=== PATIENT | male | born 1980 | race Caucasian/White ===

== ENCOUNTER 2024-07-04 18:13 | Emergency (ER) | payer MEDICAID, SELFPAY ==
[2024-07-04 18:15] VITALS: BP 115/87; PULSE 106; RESP 18; TEMP 37; O2SAT 93
--- NOTE | 2024-07-04 18:19 | ED_ITS ---
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 Currently the patient has ascending aortic aneurysm and is awaiting surgery. He had a fall 2 weeks ago on his buttock and sustained a 2 cm laceration in the gluteal cleft which was sutured. He presents to the ED with dehiscence / nonhealing of the laceration. The stitches have not been removed. No purulent discharge. No fever or chills. Onset (ago): week(s) ( Two weeks) Location: other ( gluteal cleft) Body four view annotation: 2 1. 2 cm gluteal cleft laceration which is above the anus. Wound is dehisced. Patient tetanus UTD: Yes Context: accidental Associated symptoms: none Related Data Home Medications ?Medication ?Instructions ?Recorded ?Confirmed ?Last Taken ?Type lisinopril 20 mg tablet 20 mg PO DAILY 06/13/19 06/13/19 06/12/19 History aspirin 81 mg chewable tablet 81 mg PO DAILY 07/04/24 Unknown History (Aspirin Childrens) metoprolol tartrate 50 mg tablet 50 mg PO BID 07/04/24 Unknown History omeprazole 20 mg capsule,delayed 20 mg PO DAILY 07/04/24 Unknown History release Allergies Allergy/AdvReac Type Severity Reaction Status Date / Time Penicillins Allergy Mild rash Verified 07/04/24 18:22 Review of Systems 2 Review of Systems: All systems reviewed & are unremarkable except as noted in HPI and below PMFSH Past Medical History Medical History Hypertension Anxiety Surgical History Surgical History H/O tricuspid valve replacement H/O aortic valve replacement Social History Social History Smoking status: Current every day smoker Alcohol intake: never Substance use: never Living arrangements: with family Exam 2 Narrative: afebrile. Const: General: healthy appearing and no acute distress Nutritional Appearance: well nourished Orientation/consciousness: patient oriented x3 Limitations: no limitations HENMT: Head: normal to inspection Ears: external ears normal F joe/Nose/Sinus: Normal external nose present Face and sinus: normal facial exam Mouth: Yes Normal oral and palatal mucosa present Throat: posterior oropharynx normal Eyes: Conjunctivae: conjunctivae normal Pupils: Equal, round and reactive pupils present EOM: EOMs intact bilaterally Direct Ophthalmoscopy: no photophobia Neck: Neck: normal visual inspection, no lymphadenopathy and no meningeal signs Chest: Chest palpation & inspection: normal inspection of the chest Resp: Effort & Inspection: normal respiratory effort Auscultation: clear to auscultation bilaterally Cardio: Rate: regular rate Rhythm: regular rhythm GI: GI Palp: Yes Soft to palpation Auscultation: normal bowel sounds O ther: No tenderness/ rigidity /rebound. gluteal cleft-- 2 cm laceration on the upper gluteal cleft which was repaired but is currently dehisced. Healthy granulation tissue. No discharge. Back/Spine/Pelvis: Back: CVA tenderness Skin: General skin exam: normal color Rashes: no rashes Wounds: no wounds Neuro: General: patient oriented x3, moves all extremities, no meningeal signs, no focal motor deficits and CN's II-XI intact bilaterally Cranial nerves: Yes Nystagmus not present Speech: normal speech Gait exam (Neuro): Normal gait present Extrem: General: normal to inspection, no clubbing, cyanosis or edema and no pedal edema Psych: Mental Status: mental status grossly normal Affect: normal affect Attitude: cooperative Course Course Emergency Course: Gluteal cleft laceration-- sutures placed 2 weeks ago have been removed. Wound looks healthy with healthy granulation tissue Vital Signs Vital signs: Vital Signs Temperature 37.0 C 07/04/24 18:15 Pulse Rate 106 H 07/04/24 18:15 Respiratory Rate 18 07/04/24 18:15 Blood Pressure 115/87 07/04/24 18:15 Pulse Oximetry 93 07/04/24 18:15 Oxygen Delivery Room Air 07/04/24 18:15 Temperature 37.0 C 07/04/24 18:15 Pulse Rate 106 H 07/04/24 18:15 Respiratory Rate 18 07/04/24 18:15 Blood Pressure 115/87 07/04/24 18:15 Pulse Oximetry 93 07/04/24 18:15 Oxygen Delivery Room Air 07/04/24 18:15 MDM - Wound/Laceration MDM Narrative Medical decision making narrative: gluteal cleft laceration/suture removal Differential Diagnosis Differential diagnosis: Likely laceration Discharge Plan Discharge Clinical Impression: Laceration Patient Disposition: Home, Self-Care Condition: Stable Instructions: Antibiotic Form, Laceration (ED) Patient Language: Urdu Prescriptions: No Action lisinopril 20 mg tablet 20 mg PO DAILY metoprolol tartrate 50 mg tablet 50 mg PO BID aspirin [Aspirin Childrens] 81 mg tablet,chewable 81 mg PO DAILY omeprazole 20 mg capsule,delayed release(DR/EC) 20 mg PO DAILY Follow-up/Referrals: UNKNOWN,DOCTOR [Non-Staff] - Time of Disposition: 18:47
[2024-07-04] MEDS: NEOMYCIN/POLYMYXIN/BACITRACIN OINTMENT PACKET 1 PACKET TOPICAL (18:50)
== END 2024-07-04 18:57 | disposition home or self-care (01) ==
LOC: CHSED 18:55
PROVIDERS: Emergency Provider Internal Medicine Critical Care Medicine; PCP Nurse Practitioner Family
DX: S31.821A Laceration without foreign body of left buttock, initial encounter (principal); I10 Essential (primary) hypertension; F17.200 Nicotine dependence, unspecified, uncomplicated; Z79.899 Other long term (current) drug therapy; W19.XXXA Unspecified fall, initial encounter
CPT/HCPCS: 99282

== ENCOUNTER 2025-01-24 06:57 | Emergency (ER) | payer OTHER, SELFPAY ==
--- NOTE | ~2025-01-24 | CT_ITS ---
EXAMINATION: CT abdomen pelvis wo con DATE: 01/24/2025 08:00 INDICATION: Right flank pain, hematuria, nausea and vomiting. TECHNIQUE: Computed tomography (CT) of the abdomen and pelvis was performed without intravenous contr ast. Automated exposure control and iterative reconstruction technique were employed. The dose-length product was 465.47 mGy-cm. COMPARISON: None FINDINGS: Discoid atelectasis in the bilateral lower lobes. Cluster of small calcified nodules at the lingula c onsistent with old granulomatous disease. Heart size is normal. No pericardial or pleural effusion. P ostoperative changes are clear pulmonic valve repair versus stenting of the pulmonary outflow tract. Dense aortic valve calcifications. Aortic ectasia measuring up to 5.0 cm diameter. Liver, gallbladder, pancreas, bilateral adrenal glands are normal. 5 mm obstructing stone at the righ t ureteropelvic junction with mild to moderate right hydronephrosis. A couple punctate 1 mm stones/ca lcifications at a region of cortical scarring at the lower pole the left kidney. A few small splenic calcifications consistent with old granulomatous disease. Mild diverticulosis without adjacent from t race stranding to suggest diverticular colitis. Small bowel and appendix are normal. Bladder is dorene l. Small bilateral fat-containing inguinal hernias. No free intraperitoneal gas or fluid. No patholog ically enlarged abdominal or pelvic lymphadenopathy. IMPRESSION: 1. Obstructing 5 mm stone at right ureteropelvic junction with mild to moderate right hydronephrosis. 2. 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 Reviewed, dictated and finalized at location A. IMPRESSION: 1. Obstructing 5 mm stone at right ureteropelvic junction with mild to moderate right hydronephrosis. 2. A a aortic ectasia of the visualized proximal ascending aorta measuring up t o 5.0 cm.
--- OUTSIDE RECORDS SUMMARY | 2025-01-24 06:59 | XMS_ITS | Encounter Summary ---
Author Organization [facility] Address [facility] [place] [address] Care Team Providers Care Milk Condenser Name Role Phone Talia Hassan MD Primary Care Provider [phone] Kamila Olmedo MD Unavailable [phone] Wild Lopez MD Unavailable [phone] Karolina Ramesh TANGLED YARN WORKER Primary Care Provider + [phone] Sidney Ho MD Unavailable [phone] Emery Price MD Unavailable Unavailable Reuben Sanchez MD Unavailable Unavailable Dawson Webber APRN Unavailable [phone] Encounter Details Date Type Department Care Team (Late st Contact Info) Description 10/20/2016 Abstract [facility] [address] [place] [address] Wild Lopez MD [address] [facility], [address] [place] [address] Social History Tobacco Use Types Packs/Day Years Used Date Smoking Tobacco: Former Cigarettes 1 10 0 11/09/2000 - 11/09/2010 Alcohol Use Standard Drinks/Week Comments No 0 (1 standard drink = 0.6 oz pur e alcohol) Sex and Gender Information Value Date Recorded Sex Assigned at Male 01/22/2025 3:12 AM CDT Legal 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 [place] [address] PCP - General INTERNAL MEDICINE 08/22/16 11/27/17 Karolina Ramesh FNP [address] [place] [address] PCP - General NURSE PRACTITIONER 11/28/17 Kamila Olmedo MD [address] [place] [address] CARDIOVASCULAR DISEASE 08/22/16 Wild Lopez MD [address] [place] [address] CARDIOVASCULAR DISEASE 10/25/16 Sidney Ho MD [address] [place] [address] ORTHOPAEDIC SURGERY 03/20/18 Emery Price MD [address] [place] [address] THORACIC DISEASES 12/05/18 Reuben Sanchez MD [address] [place] [address] VASCULAR SURGERY 04/15/19 Dawson Webber APRN [address] [place], [place] [id number] Nurse Practitioner NURSE PRACTITIONER 08/25/22 documented as of this encounter
--- OUTSIDE RECORDS SUMMARY | 2025-01-24 06:59 | XMS_ITS | Encounter Summary ---
Author Organization [facility] Address [address] [place] [address] Care Team Providers Care Enterprise Resource Planning Consultant Name Role Phone Kamila Olmedo MD Unavailable [phone] Wild Lopez MD Unavailable [phone] Karolina Ramesh IT SALES EXECUTIVE Primary Care Provider + [phone] Sidney Ho MD Unavailable [phone] Emery Price MD Unavailable Unavailable Reuben Sanchez MD Unavailable Unavailable Dawson Webber APRN Unavailable [phone] Encounter Details Date Type Department Care Team (Late st Contact Info) Description 02/13/2021 Talking Data Message Enc [facility] [address] [place] [id number] Dawson Webber, TIRE FABRICATOR [address] [place] [address] RE: Question Social History Tobacco Use Types Packs/Day Years Used Date Smoking Tobacco: Former Cigarettes 0 0 11/09/2010 - 11/09/2010 Smokeless Tobacco: Never Alcohol Use Standard Drinks/Week Comments Yes 0 (1 standard drink = 0.6 oz pur e alcohol) occasional Sex and Gender Information Value Date Recorded Sex Assigned at Male 01/22/2025 3:12 AM CDT Legal 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 No / Unsure 02/11/2021 4:35 AM CDT documented as of this encounter Functional Status * RETIRED Are you deaf or do you have serious difficulty hearing Answer Date of Assessment Author Status No 02/11/2021 4:00 AM CDT Activ e * RETIRED Are you blind or do you have serious difficulty seeing, even when wearing glasses? Answer Date of Assessment Author Status No 02/11/2021 4:00 AM CDT Activ e * Do you have serious difficulty walking or climbing stairs? Answer Date of Assessment Author Status No 02/11/2021 4:00 AM CDT Jayne Jane RN Active * Do you have difficulty dressing or bathing? Answer Date of Assessment Author Status No 02/11/2021 4:00 AM CDT Jayne Jane RN Active * Because of a physical, mental, or emotional condition, do you have difficulty doing errands alone such as visiting a doctor's office or shopping? Answer Date of Assessment Author Status No 02/11/2021 4:00 AM CDT Jayne Jane RN Active documented as of this encounter Mental Status * Because of a physical, mental, or emotional condition, do you have serious difficulty concentrating, remembering, or making decisions? Answer Entry Date Author Status No 02/11/2021 4:00 AM CDT Jayne Jane RN Active documented in this encounter Plan of Treatment Not on file documented as of this encounter Visit Diagnoses Not on filedocumented in this encounter Additional Health Concerns Infection Onset Date Last Indicated Resolved Time COVID-19 Rule Out 11/24/2021 11/24/2021 11/25/2021 12:07 AM CDT documented as of this encounter Care Teams Enterprise Resource Planning Consultant Relationship Specialty Start Date End Date Karolina Ramesh FNP [address] [facility] [address] [address] PCP - General NURSE PRACTITIONER 11/28/17 Kamila Olmedo MD [address] [facility] [address] [address] CARDIOVASCULAR DISEASE 08/22/16 Wild Lopez MD [facility] [address] [facility] [address] [place] [address] CARDIOVASCULAR DISEASE 10/25/16 Sidney Ho MD [address] [place] [address] ORTHOPAEDIC SURGERY 03/20/18 Emery Price MD [address] [place] [address] THORACIC DISEASES 12/05/18 Reuben Sanchez MD [address] [place] [address] VASCULAR SURGERY 04/15/19 Dawson Webber APRN [address] [place] [address] Nurse Practitioner NURSE PRACTITIONER 08/25/22 documented as of this encounter
--- OUTSIDE RECORDS SUMMARY | 2025-01-24 06:59 | XMS_ITS | Clinical Summary ---
Author Organization [facility] Address [address] [place] [address] Care Team Providers Care Wood Heel Attacher Name Role Phone Karolina Ramesh APRN-MACHINE SIGN WRITER Unavailable [phone] Nicolas Martinez MD Unavailable [phone] Karolina Ramesh TERRAZZO FINISHER HELPER-MACHINE SIGN WRITER Primary Care Provider Source Comments [facility],non-owned Affiliates and Associated Physician Practices is amultiple site organization consisting of ambulatory clinics and hospital sitesin [place], [place], [place] and [place]. This disclosure is being madepursuant to the Care Everywhere program and may not contain all information available regarding this patient. Last updated 18.[facility] [place] Allergies Active Allergy Reactions Criticality Noted Date Comments Penicillins Other 09/05/2016 Medications * Be aware that medications may not be up to date on this document. Alwaysverify current medications with the patient. aspirin (Aspirin) 81 MG chew tablet Take 1 (one) tablet by mouth once daily 90 tablet 3 10/14/2024 Active lisinopril (Prinivil; Zestril) 20 MG tabletIndication s:HTN (hypertension), benign Take 1 (one) tablet by mouth once daily 90 tablet 3 10/14/2024 Active metoprolol succinate XL 24hr (Toprol XL) 50 MG tablet Take 1 (one) tablet by mouth 2 times daily 180 tablet 3 10/14/2024 Active Active Problems Problem Noted Date Diagnosed Date Pericardial effusion 07/19/2019 Assessment & Plan (07/25/2019 11:52 AM HEALTH CARE MARKETING MANAGER): Pericardial effusion Assessment: Chacha Oneill is a 38 year old male with history of anxiety and bicuspid aortic valve 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 CTA from referring facility reviewed and significant for pericardial effusion possibly due to leak from Ann valve with extravasation of sanguinous fluid. CTA and echocardiogram on 07/19 are consistent with pericardial effusion with suspected extravasation from region of Ann valve. He was taken to the OR after initially being admitted to the Cardiology service for evacuation of the hemopericardium, followed by transfer to PICU. He tolerated the procedure well and there was no bleed found, however the pericardial effusion did find some clotted blood and the remaining of the effusion was drained. Transferred back to Cardiology service on 07/23. Patient remains hemodynamically stable, chest tubes removed, now stable on room air. TTE on 07/24 demonstrated small-moderate pericardial effusion, leftward and posterior to LV up to 15 mm. Patient continued on IV Lasix for diuresis. BMP 07/25 demonstrated BUN and Cr returned to baseline and hypokalemia. CXR showed increasing lung volume, will repeat TTE today. Patient continues to endorse persistent pain on current regimen. He received 1x flexeril due to symptoms; will hold off on additional doses for now given concerns for cardiac side effects. Plan: Resp: - Now stable on room air - Continue incentive spirometry CVS: - Restart home lisinopril 20 mg daily - Continue metoprolol to 100 mg daily and 325 mg ASA for ann valve prophylaxis - Continue cardiac tele - Continue Motrin 400 mg q8h PO for pain control and to reduce inflammation - Tylenol 650 mg scheduled q6h - Repeat ECHO today Neuro: - Scheduled Ativan 2 mg q6h for anxiety, has not required PRN amitriptyline qhs - Increase oxycodone to 10 mg q4h PRN FEN/GI: - Diet regular - D/c Colace and Senna. 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 CTA from referring facility reviewed and significant for pericardial effusion possibly due to leak from Ann valve with extravasation of sanguinous fluid. CTA and echocardiogram on 07/19 are consistent with pericardial effusion with suspected extravasation from region of Ann valve. He was taken to the OR after initially being admitted to the Cardiology service for evacuation of the hemopericardium, followed by transfer to PICU. He tolerated the procedure well and there was no bleed found, however the pericardial effusion did find some clotted blood and the remaining of the effusion was drained. Transferred back to Cardiology service on 07/23. Patient remains hemodynamically stable, chest tubes removed, pain well controlled--SCRUB WOMAN now discontinued. Does not endorse any persistent chest pain or orthopnea. CXR reassuring. BMP this morning demonstrating mild hypokalemia and increased BUN and Cr consistent with changes from loop diuretic. Plan: Resp: - Currently on 2 L NC for night time desaturation. Will trial on RA today. - Continue incentive spirometry - CXR 2 VW CVS: - Continue home lisinopril 20 mg daily and 325 mg ASA for ann valve prophylaxis - Continue metoprolol to 100 mg daily - Transition Lasix 20 mg BID from IV to 40 mg PO BID - ECHO today Neuro: - Scheduled Ativan 2 mg q6h for anxiety, has not required PRN amitriptyline qhs - Oxycodone 5 mg q4h PRN and Tylenol 650 mg q4h PRN for pain FEN/GI: - Diet regular - Colace and Senna for bowel regimen while on pain management - D/c Pepcid today - CaC03 for hypocalcemia Heme: - Continue heparin, ASA, and SCDs - Encouraged continued ambulation ID: - No evidence of PNA - Repeat CXR today Assessment & Plan (07/23/2019 12:22 PM HEALTH CARE MARKETING MANAGER): Pericardial effusion Assessment: Chacha Oneill is a 38 year old male with history of anxiety and bicuspid aortic valve 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 CTA from referring facility reviewed and significant for pericardial effusion possibly due to leak from Ann valve with extravasation of sanguinous fluid. CTA and echocardiogram on 07/19 are consistent with pericardial effusion with suspected extravasation from region of Ann valve. He was taken to the OR after initially being admitted to the Cardiology service, after being transferred to the PICU for evacuation of the hemopericardium. He tolerated the procedure well and there was no bleed found, however the pericardial effusion did find some clotted blood and the remaining of the effusion was drained. He is now is stable for transfer back to Cardiology. Plan: RS Currently on 2 L NC, will wean as tolerated Continue incentive spirometry CVS: Continue home lisinopril 20 mg daily Increase metoprolol to 100 mg daily Lasix 20 mg BID Starting 325 mg asa for ann valve prophylaxis Neuro Scheduled ativan for anxiety 2 mg q6 Currently on dilaudid SCRUB WOMAN per pain team recommendations Tylenol 650 mg q6- 8 doses Toradol 30 mg IV- 4 doses FENGI: Diet regular Colace for bowel regimen while on pain management CaC03 for hypocalcemia Assessment & Plan (07/23/2019 11:49 AM HEALTH CARE MARKETING MANAGER): Assessment: Chacha Oneill is a 38 year old male with history of anxiety and bicuspid aortic valve 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 CTA from referring facility reviewed and significant for pericardial effusion possibly due to leak from Ann valve with extravasation of sanguinous fluid. CTA and echocardiogram on 07/19 are consistent with pericardial effusion with suspected extravasation from region of Ann valve. Taken to OR on 07/21 for evacuation of hemopericardium, transferred to PICU post- op. He was extubated, started on SCRUB WOMAN for pain control. Telemetry remained stable. He was transferred to Cardiology service for further care. Plan: - Transfer to Cardiology, Dr. Alberto - Diet: regular - Daily colace, tums (started for low calcium) - Continue home lisinopril 20mg daily - Increase metoprolol from 75mg to 100mg daily - Lasix 20mg BID - Start aspirin 325mg daily for ann valve prophylaxis - Dilaudid SCRUB WOMAN: basal 0.75mg/hr, push 0.3mg, lockout 10 min, hourly max 1.95mg --> wean as tolerated - Toradol 30mg IV q6h x4 doses - Tylenol 650mg q6h x8 doses - Ativan 2mg q6h for anxiety - CR monitors, continuous pulse ox - Incentive spirometry - Nicotine patch - I/O's - VS q4h Assessment & Plan (07/21/2019 12:43 PM HEALTH CARE MARKETING MANAGER): Pericardial effusion Assessment: Chacha Oneill is a 38 year old male with history of anxiety and bicuspid aortic valve 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 CTA from referring facility reviewed and significant for pericardial effusion possibly due to leak from Ann valve with extravasation of sanguinous fluid. CTA and echocardiogram on 07/19 are consistent with pericardial effusion with suspected extravasation from region of Ann valve. Pneumonia vs atelectasis appreciated on CTA and cannot be ruled out as contributing to symptoms. Patient remains hemodynamically stable, no evidence of tamponade physiology. Still with orthopnea, shortness of breath, chest pain. Or today for correction followed by PICU transfer. Plan: - OR today for correction - CR monitors, continuous pulse ox - Incentive spirometry - I/O's - VS q4h - Oxycodone q4h PRN - Colace daily for constipation, consider adding Miralax if continues to have issues - Will hold ASA for now while further testing is completed - Continue home metoprolol, hold lasix and lisinopril due to concerns for hypotension from pericardial effusion - Will continue levaquin for possible pneumonia. 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 His effusion appears to be bloody in nature, now with appearance of hemopericardial effusion with thrombus noted posteriorly and anteriorly. Outside CT and follow-up here suspicious for possible vascular leak in region of newly placed Ann valve, possibly larger hemopericardial effusion. He continues hemodynamically stable without signs of tamponade, but remains symptomatic with diaphoresis and orthopnea. He was discussed at our CT surgical case conference today with consensus to proceed with surgical exploration with possible revision of RVOT to address likely leak as well as surgical drainage of pericardial effusion. Plan: 1. Cardiac - to OR today and will go to PICU postoperatively - Holding lisinopril and lasix given size of effusion and concern for hemodynamic changes. - He does have a history of Vtach post-cath procedure, now on Metoprolol. Short 4-beat run this weekend with PVCs overnight, no further episodes, continue at 75mg po QD for now. - continue to monitor telemetry and hemodynamics 2. Resp - - Currently stable on RA. - CXR this morning shows stable heart size with continued small pleural effusions bilaterally, more confluent left basilar consolidation today - Had low grade fever at outside hosp, so treating for possible pneumonia, continue levofloxacin, change to po. 3. FEN/GI - NPO for surgery . 4. Heme - Hct has remained stable. Holding aspirin for now preoperatively. 5. ID - cxs at outside hosp are NGTD, continues on levoflox for possible pneumonia. 6. Neuro - continues on home anxiety meds (Ativan in place of Xanax while in hospital), oxycodone prn pain. 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 His effusion appears to be bloody in nature, now with appearance of hemopericardial effusion with thrombus noted posteriorly and anteriorly. Outside CT and follow-up here suspicious for possible vascular leak in region of newly placed Ann valve. He continues hemodynamically stable without signs of tamponade, however he remains symptomatic with diaphoresis and orthopnea. Plan: 1. Cardiac - Hemopericardium, on CT today appears relatively stable compared with outside CT, though remains with sizeable hemopericardium. Holding lisinopril and lasix given size of effusion and concern for hemodynamic changes. Currently BP and HR remains stable. He does have a history of Vtach post-procedure, now on Metoprolol. Short 4-beat run yesterday afternoon, no further episodes, continue at 75mg po QD for now. 2. Resp - Bilateral pleural effusions and some areas of atelectasis. Currently stable on RA. Had low grade fever at outside hosp, so treating for possible pneumonia, continue levofloxacin, change to po. 3. FEN/GI - may resume pos today. Monitor Is/Os. 4. Heme - Hct has remained stable. Holding aspirin for now. 5. ID - cxs at outside hosp are NGTD, continues on levoflox for possible pneumonia. Chacha remains hospitalized due to critical concern for vascular leak related to recent Ann valve placement. His effusion is relatively stable, however he does have symptoms related to this and may ultimately require surgical drainage of bloody effusion and possibly even patch of area that is leaking or even more significant operation including RV to PA conduit revision. CT surgery aware of patient and Dr. Cheung also has been actively involved. Will discuss in conference further tomorrow, plan for follow-up CXR in AM. 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 CTA from referring facility reviewed and significant for pericardial effusion possibly due to leak from Ann valve with extravasation of sanguinous fluid. CTA performed this AM and echocardiogram are consistent with pericardial effusion with extravasation from Ann valve. Pneumonia vs atelectasis appreciated on CTA and cannot be ruled out as contributing to symptoms. Patient remains hemodynamically stable; will continue to manage pain and monitor symptoms with no additional intervention planned at this time. Plan: - diet regular - CXR 2vw in AM to monitor pericardial effusion - CR monitors, continuous pulse ox - Incentive spirometry - I/O's - VS q4h - Oxycodone q4h PRN - Colace daily for constipation, consider adding Miralax if continues to have issues - Will hold ASA for now while further testing is completed - Continue home metoprolol, hold lasix and lisinopril due to concerns for hypotension from pericardial effusion - Will continue levaquin for possible pneumonia. 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 Differential at this point includes pneumonia vs atelectasis vs pericarditis vs persistent pericardial effusion causing pain. CTA from referring facility reviewed and significant for pericardial effusion possibly due to leak from Ann valve with extravasation of sanguinous fluid. Patient remains hemodynamically stable; will continue to manage pain and monitor symptoms with no additional intervention planned at this time. Plan: - diet clear liquid - Echo today - CR monitors, continuous pulse ox - Incentive spirometry - I/O's - VS q4h - Oxycodone q4h PRN - Colace daily for constipation, consider adding Miralax if continues to have issues - Zofran x1 dose for nausea, watch QTc before ordering future doses - Will hold ASA for now while further testing is completed - Continue home metoprolol, hold lasix and lisinopril due to concerns for hypotension from pericardial effusion - Will continue levaquin for possible pneumonia. D/c vancomycin. 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 He requires admission for further work-up. Plan: - Admit to Cardiology, Dr. Bocanegra - Regular diet - Echo today - CR monitors, continuous pulse ox - Incentive spirometry - I/O's - VS q4h - Oxycodone q4h PRN - Colace daily for constipation, consider adding Miralax if continues to have issues - Zofran x1 dose for nausea, watch QTc before ordering future doses - Will hold ASA for now while further testing is completed -Continue remaining home medications - Will continue Levofloxacin and Vancomycin to treat for presumed pneumonia; if low suspicion for MRSA pneumonia after further testing is completed and if pneumonia continues to be high on differential, levofloxacin would be adequate coverage for CAP Bicuspid aortic valve h/o Ro ss procedure, infective endocarditis and RV to PA conduit insufficiency s/p Ann valve placement 07/16/2019 Overview (07/22/2019): Cardiac Diagnoses: 1. Bicuspid aortic valve 2. Aortic insufficiency 3. H/o infective endocarditis 4. RV-PA conduit stenosis and insufficieny 5. Pericardial effusion Cardiac Procedures/Surgeries: 1. Ross procedure 2. Cardiac catheterization with placement of a 22m Ann Valve (07/14/19, Dr. Cheung) 3. Median sternotomy with evacuation of hematoma and exploration of the main pulmonary artery and right ventricular outflow tract using cardiopulmonary bypass (07/21/19, Dr. 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 He went to the OR 07/21/19 for surgical evaluation of hematoma and exploration of the MPA/RVOT without visualization of active tear or bleeding. He is POD 4 off inotropes and has responded very well to diuretics. The pericardial effusion has decreased in size since yesterday and he states his pain control is adequate. Plan: 1. Cardiac - - lisinopril 20mg po qd (avoiding nephrotoxic effects) - metoprolol XL 100mg po qd- had VT post-cath procedure as well as short run of SVT with stable telemetry overnight; - Transition to lasix 40mg PO BID - continue scheduled ibuprofen for antiinflammatory effects 2. Resp - RA - encouraging incentive spirometry 3. FEN/GI - regular diet, CaCo3 supplement - KCL 20mEQ BID - BMP in AM (will obtain as outpatient) 4. Heme - Hct has remained stable. - Resuming ASA 325mg for ann valve ppx 5. ID - s/p treatment for possible PNA with levaquin 6. Neuro - tylenol scheduled, ibuprofen scheduled, prn oxycodone 5mg q4h for breakthrough pain; can increase to 10mg once to see if helps while getting back to scheduled pain regimen - continue home anxiety meds (Ativan in place of Xanax while in hospital) 7. 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 He went to the OR 07/21/19 for surgical evaluation of hematoma and exploration of the MPA/RVOT without visualization of active tear or bleeding. He is POD 3 off inotropes and on room air but today on postop echocardiographic evaluation appears to have a small/mod pericardial effusion without clinical signs of tamponade. Overall goal is to continue to diureses and monitor effusion. Plan: 1. Cardiac - Off inotropes and vasoactives - hold lisinopril 20mg po qd (avoiding nephrotoxic effects) - continue metoprolol XL 100mg po qd- monitoring telemetry, had VT post-cath procedure as well as short run of SVT with stable telemetry overnight; - lasix 20mg IV BID will change to lasix IV 20mg q8h today to promote diuresis - start ibuprofen for antiinflammatory effects - repeat echo tomorrow to check pericardial effusion 2. Resp - RA - encouraging incentive spirometry - repeat CXR 2V in AM 3. FEN/GI - regular diet, CaCo3 supplement - BMP in AM 4. Heme - Hct has remained stable. - holding ASA 325mg for ann valve ppx, hx of hemopericardium 5. ID - s/p treatment for possible PNA with levaquin 6. 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 He went to the OR 07/21/19 for surgical evaluation of hematoma and exploration of the MPA/RVOT without visualization of active tear or bleeding. He is currently in the PICU postoperatively with stable hemodynamics now extubated and off inotropes. Plan: 1. Cardiac - Off inotropes and vasoactives -lisinopril 20mg po qd - monitoring telemetry, had VT post-cath procedure as well as short run of SVT with stable telemetry overnight; please increase Metoprolol XL 75mg to 100mg po QD - lasix 20mg po BID will change to lasix IV 20mg po BID today to promote diuresis 2. Resp - 2L NC, wean as tolerated - encouraging incentive spirometry 3. FEN/GI - regular diet, pepcid, CaCo3 supplement - BMP in AM 4. Heme - Hct has remained stable. SubQ heparin and SCDs thombus prophylaxis - monitoring CT output - start ASA 325mg for ann valve ppx 5. ID - cxs at outside hosp are NGTD, - Had low grade fever at outside hosp prior to admission, has received levaquin for possible PNA ; 6. 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 He went to the OR yesterday for surgical evaluation of hematoma and exploration of the MPA/RVOT without visualization of active tear or bleeding. He is currently in the PICU postoperatively with stable hemodynamics anticipating extubation. Plan: 1. Cardiac - Off inotropes and vasoactives - please resume home lisinopril 20mg po qd - monitoring telemetry, had VT post-cath procedure as well as short run of SVT with stable telemetry overnight; please increase Metoprolol XL 75mg to 100mg po QD 2. Resp - extubation today 3. FEN/GI - currently NPO for extubation, resume diet as tolerate post extubation 4. Heme - Hct has remained stable. SubQ heparin and SCDs thombus prophylaxis - monitoring CT output 5. ID - cxs at outside hosp are NGTD, - Had low grade fever at outside hosp prior to admission, has received levaquin for possible PNA ; 6. Neuro - consult pain team today for continued pain management; continues on home anxiety meds (Ativan in place of Xanax while in hospital) Assessment & Plan (07/17/2019 4:56 PM HEALTH CARE MARKETING MANAGER): Assessment: Chacha Oneill is a 38 year old male with a history of aortic valve disease (BAV) and endocarditis, also s/p Ross procedure. He developed significant conduit insufficiency and underwent transcatheter Ann valve placement on 07/14/19 with good result. His recovery was complicated by a non-sustained symptomatic run of VT post- procedure. He was therefore started on metoprolol and continues to be monitored for ventricular arrhythmias. He has had no further episodes of VT. His previous echo demonstrated a small to moderate pericardial effusion post-procedure which remains stable and appears more organized with fibrin stranding noted. Plan: 1. Continue metoprolol XL, increase to 75mg po QD (had short run of SVT - 7 beats with rate of 177 yesterday AM). Continue lisinopril 20 mg PO, will decrease to QD since increasing metoprolol. Aspirin 325 mg daily. Decrease lasix to 20mg po QD. 2. Continue usual home medications. 3. Regular diet. Ambulate in halls and continue incentive spirometry. 4. Tylenol and oxycodone prn for pain control. 5. Continue ibuprofen for 4 more days given pericardial effusion. 6. Plan for d/c today, follow-up with primary sexual health physician scheduled on 08/08. Reviewed echo and CXR with Dr. Cheung, pericardial effusion not increased, stable for d/c today. Assessment & Plan (07/16/2019 11:25 AM HEALTH CARE MARKETING MANAGER): Assessment: Chacha Oneill is a 38 year old male with a history of aortic valve disease (BAV) and endocarditis, also s/p Ross procedure. He developed significant conduit insufficiency and underwent transcatheter Ann valve placement on 07/14/19 with good result. His recovery was complicated by a non-sustained symptomatic run of VT post- procedure. He was therefore started on metoprolol and continues to be monitored for ventricular arrhythmias. He has had no further episodes of VT. His previous echo demonstrated a small pericardial effusion post-procedure. Plan: 1. Continue metoprolol XL 50 mg PO once daily. Continue lisinopril 20 mg PO BID as before. Aspirin 325 mg daily. Continue Lasix 20 mg PO BID for pericardial effusion. Repeat echo in AM. Continue to monitor on telemetry. 2. Continue usual home medications. 3. Regular diet. Ambulate in halls and continue incentive spirometry. 4. Tylenol and oxycodone prn for pain control. Congenital heart disease 04/30/2019 Overview (04/30/2019): 1. Bicuspid aortic valve complicated by infective endocarditis status post Ross procedure 2004 2. VSD status post surgical repair Assessment & Plan (07/17/2019 3:01 PM HEALTH CARE MARKETING MANAGER): Assessment: Chacha Oneill is a 38 year old male a hx of anxiety and bicuspid aortic valve complicated by infective endocarditis 2/2 dental caries s/p Ross procedure (2004). 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 S/p the cath procedure, he developed sudden chest pain and L shoulder pain and had a < 1 min episode of Vtach (he did have Vtach episodes in the past) that was symptomatic and severe. Transferred to Cardiology Team to further assess etiology of these new sxs. Echo on 07/15 showed pericardial effusion; possible causes include post-cath procedure cardiac inflammation vs pericardial effusion irritation/inflammation. Troponins have been downtrending and repeat echocardiogram was obtained on 07/17/19 along with CXR. Plan: - Rpt echocardiogram today to assess pericardial effusion - CXR to assess for any other pathological causes. - Will d/c home if above imaging normal. - Continue ASA 325 mg QD - Changed Lasix 20 mg from BID to QD - Changed Lisinopril 20 mg from BID to QD. - Increased Metoprolol XL from 50 to 75 mg QD - Regular diet - Continue home medication(s): - Elavil 50 mg QHS - Normally takes Xanax TID, will substitute Ativan Q6H since Xanax not on hospital formulary. - Nicotine patch - Ibuprofen 600 mg TID for pain - Continue scheduled Tylenol q4h - PRN Albuterol - PRN Oxycodone 5 mg q4h - Per Urology on 07/15, recommend follow-up with adult Urology. - Also noted that imaging showed non-obstructing stone (no concerns at this time). Assessment & Plan (07/16/2019 9:50 AM HEALTH CARE MARKETING MANAGER): Assessment: Chacha Oneill is a 38 year old male a hx of anxiety and bicuspid aortic valve complicated by infective endocarditis 2/2 dental caries s/p Ross procedure (2004). 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 S/p the cath procedure, he developed sudden chest pain and L shoulder pain and had a < 1 min episode of Vtach (he did have Vtach episodes in the past) that was symptomatic and severe. Transferred to Cardiology Team to further assess etiology of these new sxs. Echo on 07/15 showed pericardial effusion; possible causes include post-cath procedure cardiac inflammation vs pericardial effusion irritation/inflammation. Troponins have been downtrending. Plan: - No further troponin levels necessary given that levels are downtrending - CMP tomorrow AM - Will do U/S tomorrow to assess pericardial effusion. - Continue ASA 325 mg QD - Continue Lasix 20 mg BID - Continue Lisinopril 20 mg BID - Continue Metoprolol XL 50 mg QD - Regular diet - Continue home medication(s): - Elavil 50 mg QHS - Normally takes Xanax TID, will substitute Ativan Q6H since Xanax not on hospital formulary. - Nicotine patch - Ibuprofen 600 mg TID for pain - Continue scheduled Tylenol q4h - PRN Albuterol - PRN Oxycodone 5 mg q4h - Per Urology on 07/15, recommend follow-up with adult Urology. - Also noted that imaging showed non-obstructing stone (no concerns at this time). Assessment & Plan (07/15/2019 11:59 AM HEALTH CARE MARKETING MANAGER): Assessment: Chacha Oneill is a 38 year old male a hx of anxiety and bicuspid aortic valve complicated by infective endocarditis 2/2 dental caries s/p Ross procedure (2004). 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 S/p the cath procedure, he developed sudden chest pain and L shoulder pain and had a < 1 min episode of Vtach (he did have Vtach episodes in the past) that was symptomatic and severe. Transferred to Cardiology Team to further assess etiology of these new sxs. Echo on 07/15 showed pericardial Possible causes include post-cath procedure cardiac inflammation vs pericardial effusion leading to irritation. Plan: - Transferred to Cardiology Service, Dr. Sisi Bocanegra - Trending Troponins Q6H - if uptrending, will consider possible catheterization to further assess. - ASA 325 mg QD - Lasix 20 mg BID - Lisinopril 20 mg BID - Regular diet - BMP tomorrow - Continue home medication(s): - Elavil 50 mg QHS - Normally takes Xanax TID, will substitute Ativan Q6H. - Nicotine patch - Ibuprofen 600 mg TID for pain - PRN Tylenol - PRN Albuterol - PRN Oxycodone 5 mg - Per Urology, ok to discontinue Patrick catheter and recommended follow-up with adult Urology. - Also noted that imaging showed non-obstructing stone Nonrheumatic pulmonary valve stenosis 04/30/2019 Encounters Date Type Department Care Team Description 12/04/2024 Telephone [facility] Heart & Vascular Care [address] [place] [address] [address] [place] [address] Nicolas Martinez MD Record Request 11/25/2024 12:29 PM CDT - 11/25/2024 11:59 PM CDT Hospital Encounter [facility] Imaging Services - CT Scan [address] [facility], [address] [place] [address] Nicolas Martinez MD Discharge Disposition: Home or Self Care 11/25/2024 Results Follow-Up [facility] [address] [place] [address] [address] [place] [address] Nicolas Martinez MD 11/11/2024 Telephone [facility] Care [address] [facility] [address] [place] [phone] Jorge Gill MD Follow-up 11/04/2024 Travel 10/29/2024 Telephone [facility] [facility] [address] [place] [address] Nicolas Martinez MD Forms/questionnaires from Last 3 Months Family History Medical History Relation Name Comments CAD (Coronary Artery Disease) Mother Relation Name Status Comments Father Mother Alive Social History Tobacco Use Types Packs/Day Years Used Date Smoking Tobacco: Former Cigarettes Q uit: 07/2010 Smokeless Tobacco: Former Quit: 07/2010 Tobacco Cessation:Counseling Given: No Alcohol Use Standard Drinks/Week Comments Not Currently 0 (1 standard drink = 0.6 oz pur e alcohol) AUDIT-C Answer Date Recorded Frequency of Alcohol Consumption 2-4 times a sun07/19/2019 Average Number of Drinks 1 or 2 020 Frequency of Binge Drinking Less than monthly Sex and Gender Information Value Date Recorded Sex Assigned at Not on file Legal Sex Male 5:35 AM HEALTH CARE MARKETING MANAGER Gender Identity Not on file Sexual Orientation Not on file Last Filed Vital Signs Vital Sign Reading Time Taken Comments Blood Pressure 122/76 10/14/2024 9:25 AM CDT Pulse 90 10/14/2024 9:25 AM CDT Temperature 36.6 C (97.8 F) 10/14/2024 9:25 AM CDT Respiratory Rate 18 01/23/2024 2:44 PM CDT Oxygen Saturation 96% 05/12/2024 1:04 PM CDT Inhaled Oxygen Concentration 100% 07/23/2019 4 :00 PM HEALTH CARE MARKETING MANAGER Weight 90.1 kg (198 lb 9.6 oz) 10/14/2024 9:25 A M CDT Height 177.8 cm (5' 10) 01/23/2024 2:44 PM CDT Body Mass Index 28.5 01/23/2024 2:44 PM CDT Plan of Treatment Upcoming Encounters Date Type Department Care Team (Late st Contact Info) Description 03/18/2025 9:45 AM CDT Appointment [facility] Heart & Vascular [facility] [facility], [address] [place] [address] 03/18/2025 10:30 AM CDT Office Visit [facility] Heart & Vascular Care [address] [facility] [address] [place] [address] Nicolas Martinez MD [address] [facility] [address] [place] [id number] Health Maintenance Due Date Last Done Comments HIV SCREENING 1996 HEPATITIS C SCREENING 12/06/1999 DTAP/TDAP/TD VACCINES (1 - Tdap) 2000 HEPATITIS B VACCINE (1 of 3 - 19+ 3-dose series) 2000 HPV VACCINE (1 - 3-dose SCDM series) 2008 COVID-19 VACCINE (1 - season) 2024 DEPRESSION SCREENING 07/16/2024 SCREENING FOR DIABETES 12/22/2024 , 12/22/2021, 11/24/2021, Additional history exists INFLUENZA VACCINE (#1) 2025 LIPID TESTING 12/07/2027 12/06/2022 ZOSTER VACCINE (1 of 2) 12/11/2031 HIB VACCINE Aged Out No longer eligi ble based on patient's age to complete this topic MENINGOCOCCAL (Group B) VACCINE SHARED DECISION-MAKING Aged Out No longer eligible based on patient's age to complete this topic MENINGOCOCCAL GROUPS A/C/Y/W VACCINE Aged Out No longer eligible based on patient's age to complete this topic PNEUMOCOCCAL VACCINE Aged Out No long er eligible based on patient's age to complete this topic Procedures Procedure Name Priority Date/Time Associated Diagnosis Comments CT CHEST W CONTRAST Routine 11/25/2024 1 :09 PM CDT Aneurysm of ascending aorta without rupture Valvular heart disease Orthopnea CREATININE - POCT INTERFACED Routine 11/25/2024 12:37 PM CDT BASIC METABOLIC PANEL (CALCIUM TOTAL) AM Draw 07/25/2019 5:32 AM HEALTH CARE MARKETING MANAGER from Last 3 Months or Most Recently Relevant to Health Maintenance Results * CT Chest W Contrast (11/25/2024 1:09 PM CDT) Anatomical Region Laterality Modality Chest Computed Tomogra phy 11/25/2024 1:11 PM CDT Impressions 11/25/2024 1:20 PM CDT IMPRESSION: Aneurysmal dilatation of the ascending thoracic aorta as described. This appears similar to the old exam. Postop changes of the main pulmonary artery/pulmonary outflow tract. Previously seen pulmonary infiltrates have resolved. Resolution of previous pericardial effusion. > Interpreting Provider: Garrett Pimentel MD on 11/25/2024 1:20 PM Narrative 11/25/2024 1:20 PM CDT Procedure: CT CHEST W CONTRAST Exam Date: 11/25/2024 1:10 PM Location: [facility] CT Chest with IV contrast INDICATION:I71.21: Aneurysm of the ascending aorta, without rupture I38: Endocarditis, valve unspecified R06.01: Orthopnea TECHNIQUE: CT examination of the chest was performed from the lung apices through the lung bases utilizing helical scanning after the administration of IV contrast. Sagittal and coronal reconstructions were performed. Contrast: 80 cc of Isovue-370 was utilized. FINDINGS: The study is compared to an exam from July 2019 from [facility]. There are mild degenerative changes of the spine. Patient is status post median sternotomy. Previously seen pulmonary infiltrates have resolved. There is no focal consolidation. There is no pleural effusion. There is no pneumothorax. There is a calcified granuloma within the lingula. There are no suspicious pulmonary nodules. The central airways are normal in caliber. The thyroid gland is unremarkable. There is no axillary adenopathy. There is no mediastinal adenopathy. There is no hilar adenopathy. There is aneurysmal dilatation of the ascending thoracic aorta measuring 4.7 cm in AP diameter. The proximal arch measures 2.2 cm and the distal arch measures 2.4 cm. There is no leak. There appear to be postop changes involving the main pulmonary artery which does cause significant streak artifact. There is no gross evidence for pulmonary embolism. The heart size is normal. Previously seen pericardial effusion is no longer present. Procedure Note Garrett Pimentel MD - 11/25/2024 Procedure: CT CHEST W CONTRAST Exam Date: 11/25/2024 1:10 PM Location: [facility] CT Chest with IV contrast INDICATION:I71.21: Aneurysm of the ascending aorta, without rupture I38: Endocarditis, valve unspecified R06.01: Orthopnea TECHNIQUE: CT examination of the chest was performed from the lungapices through the lung bases utilizing helical scanning after theadministration of IV contrast. Sagittal and coronal reconstructions were performed. Contrast: 80 cc of Isovue-370 was utilized. FINDINGS: [facility] There are mild degenerative changes of the spine.Patient is status post median sternotomy. Previously seen pulmonary infiltrates have resolved. There is no focal consolidation. There is no pleural effusion. There is nopneumothorax. There is a calcified granuloma within the lingula. There are no suspicious pulmonary nodules. The central airways are normal incaliber. The thyroid gland is unremarkable. There is no axillary adenopathy. There is no mediastinal adenopathy. There is no hilar adenopathy. There is aneurysmal dilatation of the ascending thoracic aorta measuring 4.7 cm in AP diameter. The proximal arch measures 2.2 cm and the distal arch measures 2.4 cm. There is no leak. There appear to be postopchanges involving the main pulmonary artery which does cause significant streak artifact. There is no gross evidence for pulmonary embolism. The heartsize is normal. Previously seen pericardial effusion is no longer present. IMPRESSION: Aneurysmal dilatation of the ascending thoracic aorta as described. This appears similar to the old exam. Postop changes of the main pulmonary artery/pulmonary outflow tract. Previously seen pulmonary infiltrates have resolved. Resolution of previous pericardial effusion. > Interpreting Provider: Garrett Pimentel MD on 11/25/2024 1:20 PM us Nicolas Martinez MD CT ORDERABLES Final Result * CREATININE - POCT INTERFACED (11/25/2024 12:37 PM CDT) Creatinine POCT 0.85 0.70 - 1.20 mg/dL 11/25/2024 12:58 PM CDT [facility] eGFR >90 >=90 mL/min/1.7 3 m2 11/25/2024 12:58 PM CDT [facility] Blood BLOOD SPECIMEN / Unknown 11/25/2024 12:37 PM CDT 11/25/2024 12:58 PM CDT us Nicolas Martinez MD LAB - POINT OF CARE ORDERABLES Final Result [facility] [address] [place] [address] * (ABNORMAL) BASIC METABOLIC PANEL (CALCIUM TOTAL) (07/25/2019 5:32 AM [facility]) [facility] Glucose 107(H) 70 - 105 mg/dL 07/25/2019 6:[address] [facility] Sodium 137 136 - 145 mmol/L 07/25/2019 6:[address] [facility] Potassium 3.0(L) 3.5 - 5.1 mmol/L 07/25/2019 6:[address] [facility] Chloride 98 98 - 107 mmol/L 07/25/2019 6:[address] [facility] CO2 29 22 - 29 mmol/L 07/25/2019 6:[address] [facility] Calcium 8.51(L) 9.08 - 10.48 mg/dL 07/25/2019 6:[address] [facility] Anion Gap 10 5 - 20 mmol/L 07/25/2019 6:[address] [facility] BUN 11.2 5.3 - 18.7 mg/dL 07/25/2019 6:[address] [facility] Creatinine 0.84 0.61 - 1.07 mg/dL 07/25/2019 6:[address] [facility] eGFR by MDRD >60 >60 mL/min/1.7 3m2 07/25/2019 6:[address] [facility] eGFR by MDRD >60 >60 mL/min/1.7 3m2 07/25/2019 6:[address] [facility] Blood BLOOD SPECIMEN / Unknown Lab Venipuncture / Unknown 07/25/2019 5:32 AM HEALTH CARE MARKETING MANAGER 07/25/2019 5:45 AM [facility] us Rima Traore MD LAB - CHEMISTRY ORDERABLES Final Result [facility] [address] 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 Adv Directive/Living Will/POA 07/28/2019 9:05 PM POA * Full Code (Latest Code Status on File) Date Activated Date Inactivated Comments 07/19/2019 3:45 AM 07/25/2019 6:34 PM * Full Code Date Activated Date Inactivated Comments 07/14/2019 6:49 PM 07/17/2019 4:04 PM Care Teams Wood Heel Attacher Relationship Specialty Start Date End Date Karolina Ramesh APRN-CNP [address] [place] [phone] PCP - General Nurse Practitioner Family 05/12/24 Karolina Ramesh APRN-MACHINE SIGN WRITER [address] [place] [address] [place] [phone] 04/16/19 Nicolas Martinez MD [address] [place] [phone] Nitrocellulose Operator Cardiology 04/30/19
--- OUTSIDE RECORDS SUMMARY | 2025-01-24 06:59 | XMS_ITS | Encounter Summary ---
Author Organization [facility] Health Address [address] [place] [address] Care Team Providers Care Certified Physician'S Assistant Name Role Phone Karolina Ramesh APRN-SIZER HAND Unavailable [phone] Nicolas Martinez MD Unavailable [phone] Karolina Ramesh PERSON INVESTIGATOR-SIZER HAND Primary Care Provider Encounter Details Date Type Department Care Team (Late st Contact Info) Description 11/25/2024 Results Follow-Up [facility] [address] [place] [address] [address] [place] [address] Nicolas Martinez MD [address] [place] [address] [place] [id number] Social History Tobacco Use Types Packs/Day Years Used Date Smoking Tobacco: Former Cigarettes Q uit: 07/2010 Smokeless Tobacco: Former Quit: 07/2010 Alcohol Use Standard Drinks/Week Comments Not Currently 0 (1 standard drink = 0.6 oz pur e alcohol) AUDIT-C Answer Date Recorded Frequency of Alcohol Consumption 2-4 times a sun07/19/2019 Average Number of Drinks 1 or 2 020 Frequency of Binge Drinking Less than monthly Sex and Gender Information Value Date Recorded Sex Assigned at Not on file Legal Sex Male 5:35 AM DIRECTOR OF INTERCOLLEGIATE ATHLETICS Gender Identity Not on file Sexual Orientation Not on file documented as of this encounter Functional Status * Is person deaf or have serious hearing difficulty? Answer Date of Assessment Author No 07/19/2019 4:56 AM DIRECTOR OF INTERCOLLEGIATE ATHLETICS Luis Thomas RN * Is person blind or have serious difficulty seeing? Answer Date of Assessment Author No 07/19/2019 4:56 AM Luis Julio RN * Does person have serious difficulty walking/climbing stairs? Answer Date of Assessment Author No 07/19/2019 4:56 AM Luis Julio RN * Does person have difficulty dressing/bathing? Answer Date of Assessment Author No 07/19/2019 4:56 AM Luis Julio RN * Does person have difficulty doing errands alone? Answer Date of Assessment Author No 07/19/2019 4:56 AM Luis Julio RN documented as of this encounter Mental Status * Does person have difficulty concentrating/remembering/making decisions? Answer Entry Date Author Yes 07/19/2019 4:56 AM Luis Julio RN documented in this encounter Progress Notes * Nicolas Martinez MD - 11/25/2024 1:46 PM CDT Aneurysm stable. Plan to repeat imaging again in 1 year for surveillance purposes. Thank you. documented in this encounter Plan of Treatment Upcoming Encounters Date Type Department Care Team (Late st Contact Info) Description 03/18/2025 9:45 AM CDT Appointment [facility] [address] [place] [address], [address] [address] 03/18/2025 10:30 AM CDT Office Visit [facility] Health Heart & V[facility] Care [address] [place] [address] [address] [place] [address] Nicolas Martinez MD [address] [place] [address] [place] [id number] documented as of this encounter Visit Diagnoses Not on filedocumented in this encounter Care Teams Certified Physician'S Assistant Relationship Specialty Start Date End Date Karolina Ramesh, PERSON INVESTIGATOR-SIZER HAND [address] [place] [phone] PCP - General Nurse Practitioner Family 05/12/24 Karolina Ramesh, PERSON INVESTIGATOR-SIZER HAND [address] [place] [address] [place] [id number] 04/16/19 Nicolas Martinez MD [address] [phone] Tube Laser Operator Cardiology 04/30/19 documented as of this encounter
--- OUTSIDE RECORDS SUMMARY | 2025-01-24 06:59 | XMS_ITS | Encounter Summary ---
Author Organization [facility] Address [facility] [place] [address] Care Team Providers Care Finish Filer Name Role Phone Kamila Olmedo MD Unavailable [phone] Wild Lopez MD Unavailable [phone] Karolina Ramesh INTERVENTIONAL SALE CONSULTANT Primary Care Provider [phone] Sidney Ho MD Unavailable [phone] Emery Price MD Unavailable Unavailable Reuben Sanchez MD Unavailable Unavailable Dawson Webebr APRN Unavailable [phone] Encounter Details Date Type Department Care Team (Late st Contact Info) Description 12/21/2018 Abstract [facility] CONVERSION [address] [place] [address] , Generic Conversion, Social History Tobacco Use Types Packs/Day Years Used Date Smoking Tobacco: Former Cigarettes 1 10 0 11/09/2000 - 11/09/2010 Smokeless Tobacco: Never Alcohol Use Standard Drinks/Week Comments Yes 8.3 (1 standard drink = 0.6 oz p ure alcohol) occasional Sex and Gender Information Value Date Recorded Sex Assigned at Male 01/22/2025 3:12 AM CDT 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 Gender Identity Male 01/22/2025 3:12 AM CDT Sexual Orientation Not on file documented as of this encounter Plan of Treatment Not on file documented as of this encounter Visit Diagnoses Not on filedocumented in this encounter Additional Health Concerns Infection Onset Date Last Indicated Resolved Time COVID-19 Rule Out 11/24/2021 11/24/2021 11/25/2021 12:07 AM CDT documented as of this encounter Care Teams Finish Filer Relationship Specialty Start Date End Date Karolina Ramesh FNP [address] [place] [address] PCP - General NURSE PRACTITIONER 11/28/17 Kamila Olmedo MD [address] [place] [address] CARDIOVASCULAR DISEASE 08/22/16 Wild Lopez MD [address] [place] [address] CARDIOVASCULAR DISEASE 10/25/16 Sidney Ho MD [address] [place] [address] ORTHOPAEDIC SURGERY 03/20/18 Emery Price MD [address] [place] [address] THORACIC DISEASES 12/05/18 Reuben Sanchez MD [address] [place], [place] [id number] VASCULAR SURGERY 04/15/19 Dawson Webber APRN [address] [place] [address] Nurse Practitioner NURSE PRACTITIONER 08/25/22 documented as of this encounter
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
[2025-01-24 07:05] VITALS: BP 121/88; PULSE 78; RESP 18; TEMP 36.5; O2SAT 100
[2025-01-24] MEDS: SODIUM CHLORIDE 0.9% IV 1,000 ML 999 ML IV CONT (07:32)
[2025-01-24] MEDS: KETOROLAC 30 MG/ML VIAL (*BKC) IV PUSH (07:33)
[2025-01-24] MEDS: ONDANSETRON INJ 4 MG/2 ML VIAL IV PUSH (07:33)
--- NOTE | 2025-01-24 07:39 | ED.ABDPAIN ---
HPI - Abdominal Pain General Chief Complaint: Urogenital-Male Stated Complaint: KIDNEY STONE Time Seen by Provider: 01/24/25 07:16 Source: patient and family Mode of arrival: ambulatory Limitations: no limitations History of Present Illness HPI narrative: this is a 44-year-old male with some recently diagnosed with right kidney stone in and was sent home follow-up Urology and pain control but was not able to follow with urologist. Has right flank pain he rates it currently at a 4/10 with nausea, there is no fever chills no hematuria no dysuria no shortness of breath. MD elicited complaint: abdominal pain and flank pain Onset (ago): day(s) Pain Consistency: intermittent Location: R flank Severity: mild Pain scale (0-10): 4 Quality: dull Radiation: R flank Migration to: suprapubic Related Data Home Medications ?Medication ?Instructions ?Recorded ?Confirmed ?Last Taken ?Type lisinopril 20 mg tablet 20 mg PO DAILY 06/13/19 06/13/19 06/12/19 History aspirin 81 mg chewable tablet 81 mg PO DAILY 07/04/24 Unknown History (Aspirin Childrens) metoprolol tartrate 50 mg tablet 50 mg PO BID 07/04/24 Unknown History omeprazole 20 mg capsule,delayed 20 mg PO DAILY 07/04/24 Unknown History release Allergies Allergy/AdvReac Type Severity Reaction Status Date / Time Penicillins Allergy Mild rash Verified 01/24/25 07:22 Review of Systems Review of Systems: All systems reviewed & are unremarkable except as noted in HPI and below PMFSH Past Medical History Medical History Hypertension Anxiety Surgical History Surgical History H/O tricuspid valve replacement H/O aortic valve replacement Social History Social History Smoking status: Current every day smoker Alcohol intake: never Substance use: never Living arrangements: with family Exam Const: General: healthy appearing and no acute distress Nutritional Appearance: well nourished Orientation/consciousness: patient oriented x3 Limitations: no limitations Neck: Neck: normal visual inspection, no lymphadenopathy and no meningeal signs Chest: Chest palpation & inspection: normal inspection of the chest Resp: Effort & Inspection: normal respiratory effort Auscultation: clear to auscultation bilaterally Cardio: Rate: regular rate Rhythm: regular rhythm GI: GI Palp: Yes Soft to palpation : General: Yes bladder normal to palpation Back/Spine/Pelvis: Back: CVA tenderness Skin: General skin exam: normal color Rashes: no rashes Wounds: no wounds Neuro: General: patient oriented x3, moves all extremities and no meningeal signs Extrem: General: normal to inspection, no clubbing, cyanosis or edema and no pedal edema Course Course Emergency Course: Patient started on IV fluids with normal saline received 30mg IV Toradol and Zofran, Blood work performed and reviewed CT scan abdomen pelvis without contrast performed and reviewed with patient. Vital Signs Vital signs: Vital Signs Temperature 36.5 C 01/24/25 07:05 Pulse Rate 78 01/24/25 07:05 Respiratory Rate 18 01/24/25 07:05 Blood Pressure 121/88 01/24/25 07:05 Pulse Oximetry 100 01/24/25 07:05 Oxygen Delivery Room Air 01/24/25 07:05 Temperature 36.3 C L 01/24/25 08:55 Pulse Rate 82 01/24/25 08:55 Respiratory Rate 14 01/24/25 08:55 Blood Pressure 123/75 01/24/25 08:55 Pulse Oximetry 96 01/24/25 08:55 Oxygen Delivery Room Air 01/24/25 08:55 MDM - Abdominal Pain Lab Data 01/24/25 08:42 01/24/25 08:42 Labs: Lab Results 01/24/25 Range/Units 08:42 WBC 11.0 H (4.8-10.8) K/mm3 RBC 5.46 (4.70-6.10) M/mm3 Hgb 15.5 (14.0-18.0) g/dL Hct 45.7 (40.0-54.0) % MCV 83.7 (78.0-102.0) fL MCH 28.4 (27.0-31.0) pg MCHC 33.9 (32-36) g/dL RDW 13.2 (11.6-14.4) % Plt Count 221 (150-420) K/mm3 MPV 10.0 (8.7-11.0) fl Immature Gran % (Auto) 0.5 H (0.0-0.0) % Neut % (Auto) 69.7 (50.0-70.0) % Lymph % (Auto) 22.1 (18.0-42.0) % [place] % (Auto) 6.8 (2.0-11.0) % Eos % (Auto) 0.5 L (1.0-6.0) % Baso % (Auto) 0.4 (0.0-1.0) % Lymph # (Auto) 2.42 (1.10-4.50) K/mm3 [place] # (Auto) 0.75 (0.10-0.90) K/mm3 Eos # (Auto) 0.05 (0.02-0.50) K/mm3 Baso # (Auto) 0.04 (0.00-0.10) K/mm3 Abs Immat Gran (auto) 0.05 H (0.00-0.00) K/mm3 Absolute Neuts (auto) 7.65 H (1.70-7.20) K/mm3 Absolute Nucleated RBC 0.00 (0.00-0.00) K/mm3 Nucleated RBC % 0.0 (0-0.0) % Sodium 137 (137-145) mmol/L Potassium 3.0 L (3.4-5.0) mmol/L Chloride 102 (98-107) mmol/L Carbon Dioxide 31 H (22-30) mmol/L Anion Gap 4 (4-12) mmol/L BUN 7 L (9-20) mg/dL Creatinine 0.89 (0.7-1.3) mg/dL Estim Creat Clear Calc 85 ml/min Estimated GFR > 60 (59 - ) Glucose 82 (65-110) mg/dL Calculated Osmolality 281 L (285-295) mOsm/kg Lactic Acid 2.5 H (0.4-2.0) mmol/L Calcium 8.3 L (8.4-10.2) mg/dL Total Bilirubin 0.4 (0.2-1.3) mg/dL AST 22 (17-59) U/L ALT 19 (6-50) U/L Alkaline Phosphatase 83 (38-126) U/L Total Protein 6.8 (6.3-8.2) g/dL Albumin 3.7 (3.5-5.1) g/dL Urine Color Yellow (Yellow) Urine Appearance Sl cloudy A (Clear) Urine pH 6.0 (5.0-8.0) Ur Specific [place] 1.025 H (1.010-1.020) Urine Protein Negative (Negative) Urine Glucose (UA) Negative (Negative) Urine Ketones Negative (Negative) Ur Blood (Man) 3+ H (Negative) Urine Nitrate Negative (Negative) Urine Bilirubin Negative (Negative) Urine Urobilinogen 0.2 (0.2-1.0) mg/dL Leukocyte Esterase Rfl Negative (Negative) BASIA/UL Urine RBC 11-20 H (0-2) /hpf Urine WBC None seen (0-3) /hpf Ur Squamous Epith Cells Rare (Few) /hpf Urine Bacteria 1+ H (None) /hpf Urine Mucus Moderate H /lpf Imaging Data Radiologist's impression: ITS Impressions Abdomen/Pelvis CT 01/24/25 08:04 IMPRESSION: 1. Obstructing 5 mm stone at right ureteropelvic junction with mild to moderate right hydronephrosis. 2. 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 Critical Care Time Critical Care Time Critical Care Time: No Discharge Plan Discharge Clinical Impression: Acute hypokalemia Urolithiasis Qualifiers: Urinary calculus location: other lower urinary tract location Qualified Code(s): N21.8 - Other lower urinary tract calculus Urinary tract infection Qualifiers: Urinary tract infection type: site unspecified Hematuria presence: without hematuria Qualified Code(s): N39.0 - Urinary tract infection, site not specified Patient Disposition: Home Condition: Stable Instructions: Antibiotic Form, Urinary Tract Infection in Men (ED), Hypokalemia (ED), Ureteral Stones (ED) Additional Instructions: advised patient to use strainer, establish with primary care physician, take medicine as prescribed and follow up within 1 week for further evaluation treatment Patient Language: Nauruan Prescriptions: New nitrofurantoin monohyd/m-cryst [Macrobid] 100 mg capsule 100 mg PO Q12H 7 Days Qty: 14 0RF Rx Instructions: must administer with a meal/food potassium chloride [K-Tab] 20 mEq tablet extended release 20 meq PO BID 3 Days Qty: 6 0RF ondansetron 4 mg tablet,disintegrating 4 mg PO Q6H PRN (Reason: nausea and vomiting) Qty: 14 0RF No Action lisinopril 20 mg tablet 20 mg PO DAILY metoprolol tartrate 50 mg tablet 50 mg PO BID aspirin [Aspirin Childrens] 81 mg tablet,chewable 81 mg PO DAILY omeprazole 20 mg capsule,delayed release(DR/EC) 20 mg PO DAILY Follow-up/Referrals: UNKNOWN,DOCTOR [Non-Staff] - Time of Disposition: 09:18
--- OUTSIDE RECORDS SUMMARY | 2025-01-24 08:08 | XMS_ITS | Encounter Summary ---
Author Organization [facility] Address [facility] [place] [address] Care Team Providers Care Concession Supervisor Name Role Phone Kamila Olmedo MD Unavailable [phone] Wild Lopez MD Unavailable [phone] Karolina Ramesh SENIOR ETL DEVELOPER Primary Care Provider + [phone] Sidney Ho MD Unavailable [phone] Emery Price MD Unavailable Unavailable Reuben Sanchez MD Unavailable Unavailable Dawson Webber APRN Unavailable [phone] Encounter Details Date Type Department Care Team (Late st Contact Info) Description 12/21/2018 Abstract [facility] [address] [place] [address] , Generic Conversion, Social History Tobacco Use Types Packs/Day Years Used Date Smoking Tobacco: Former Cigarettes 1 10 0 11/09/2000 - 11/09/2010 Smokeless Tobacco: Never Alcohol Use Standard Drinks/Week Comments Yes 8.3 (1 standard drink = 0.6 oz p ure alcohol) occasional Sex and Gender Information Value Date Recorded Sex Assigned at Male 01/22/2025 3:12 AM CDT Legal Sex Male 11:13 PM NEONATOLOGIST Gender Identity Male 01/22/2025 3:12 AM CDT Sexual Orientation Not on file documented as of this encounter Plan of Treatment Not on file documented as of this encounter Visit Diagnoses Not on filedocumented in this encounter Additional Health Concerns Infection Onset Date Last Indicated Resolved Time COVID-19 Rule Out 11/24/2021 11/24/2021 11/25/2021 12:07 AM CDT documented as of this encounter Care Teams Concession Supervisor Relationship Specialty Start Date End Date Karolina Ramesh FNP [address] [address] PCP - General NURSE PRACTITIONER 11/28/17 Kamila Olmedo MD [address] [address] CARDIOVASCULAR DISEASE 08/22/16 Wild Lopez MD [address] [address] CARDIOVASCULAR DISEASE 10/25/16 Sidney Ho MD [address] [place] [address] ORTHOPAEDIC SURGERY 03/20/18 Emery Price MD [address] [place] [address] THORACIC DISEASES 12/05/18 Reuben Sanchez MD [address] [place], [place] [id number] VASCULAR SURGERY 04/15/19 Dawson Webber APRN [address] [place] [address] Nurse Practitioner NURSE PRACTITIONER 08/25/22 documented as of this encounter
--- OUTSIDE RECORDS SUMMARY | 2025-01-24 08:08 | XMS_ITS | Encounter Summary ---
Author Organization [facility] Address [facility] [place] [address] Care Team Providers Care Tying In Machine Operator Name Role Phone Talia Hassan MD Primary Care Provider [phone] Kamila Olmedo MD Unavailable [phone] Wild Lopez MD Unavailable [phone] Karolina Ramesh CLIENT DEVELOPMENT MANAGER Primary Care Provider + [phone] Sidney Ho MD Unavailable [phone] Emery Price MD Unavailable Unavailable Reuben Sanchez MD Unavailable Unavailable Dawson Webber APRN Unavailable [phone] Encounter Details Date Type Department Care Team (Late st Contact Info) Description 10/20/2016 Abstract [facility] [address] [place] [address] Wild Lopez MD [address] [facility], [address] [place] [address] Social History Tobacco Use Types Packs/Day Years Used Date Smoking Tobacco: Former Cigarettes 1 10 0 11/09/2000 - 11/09/2010 Alcohol Use Standard Drinks/Week Comments No 0 (1 standard drink = 0.6 oz pur e alcohol) Sex and Gender Information Value Date Recorded Sex Assigned at Male 01/22/2025 3:12 AM CDT Legal Sex Male 11:13 PM QUILL WINDER Gender Identity Male 01/22/2025 3:12 AM CDT Sexual Orientation Not on file documented as of this encounter Plan of Treatment Not on file documented as of this encounter Visit Diagnoses Not on filedocumented in this encounter Additional Health Concerns Infection Onset Date Last Indicated Resolved Time COVID-19 Rule Out 11/24/2021 11/24/2021 11/25/2021 12:07 AM CDT documented as of this encounter Care Teams Tying In Machine Operator Relationship Specialty Start Date End Date Talia Hassan MD [facility] [address] [place] [address] PCP - General INTERNAL MEDICINE 08/22/16 11/27/17 Karolina Ramesh FNP [address] [place] [address] PCP - General NURSE PRACTITIONER 11/28/17 Kamila Olmedo MD [address] [place] [address] CARDIOVASCULAR DISEASE 08/22/16 Wild Lopez MD [address] [place] [address] CARDIOVASCULAR DISEASE 10/25/16 Sidney Ho MD [address] [place] [address] ORTHOPAEDIC SURGERY 03/20/18 Emery Price MD [address] [place] [address] THORACIC DISEASES 12/05/18 Reuben Sanchez MD [address] [place] [address] VASCULAR SURGERY 04/15/19 Dawson Webber APRN [address] [place], [place] [address] Nurse Practitioner NURSE PRACTITIONER 08/25/22 documented as of this encounter
--- OUTSIDE RECORDS SUMMARY | 2025-01-24 08:08 | XMS_ITS | Encounter Summary ---
Author Organization [facility] Address [address] [place] [address] Care Team Providers Care Senior Product Development Scientist Name Role Phone Karolina Ramesh APRN-[employer] TECHNICAL MANAGER Unavailable [phone] Nicolas Martinez MD Unavailable [phone] Karolina Ramesh MILIEU MANAGER-[employer] TECHNICAL MANAGER Primary Care Provider Encounter Details Date Type Department Care Team (Late st Contact Info) Description 11/25/2024 Results Follow-Up [facility] [address] [place] [address] [address] [place] [address] Nicolas Martinez MD [address] [place] [address] [place] [phone] Social History Tobacco Use Types Packs/Day [...] on file Legal Sex Male 5:35 AM DISPLAY DESIGNER OUTSIDE Gender Identity Not on file Sexual Orientation Not on file documented as of this encounter Functional Status * Is person deaf or have serious hearing difficulty? Answer Date of Assessment Author No 07/19/2019 4:56 AM DISPLAY DESIGNER OUTSIDE Luis Thomas RN * Is person blind [...] Info) Description 03/18/2025 9:45 AM CDT Appointment [facility] [address] [place] [address], [address] [address] 03/18/2025 10:30 AM CDT Office Visit [facility] [address] [place] [address] [address] [place] [address] Nicolas Martinez MD [address] [place] [address] [place] [phone] documented as of this encounter Visit Diagnoses Not on filedocumented in this encounter Care Teams Senior Product Development Scientist Relationship Specialty Start Date End Date Karolina Ramesh, MILIEU MANAGER-[employer] TECHNICAL MANAGER [address] [place] [phone] PCP - General Nurse Practitioner Family 05/12/24 Karolina Ramesh, MILIEU MANAGER-[employer] TECHNICAL MANAGER [address] [place] [address] [place] [phone] 04/16/19 Nicolas Martinez MD [address] [phone] Restaurant District Manager Cardiology 04/30/19 documented as of this encounter
--- OUTSIDE RECORDS SUMMARY | 2025-01-24 08:08 | XMS_ITS | Encounter Summary ---
Author Organization [facility] Address [address] [place] [address] Care Team Providers Care Test Lab Technician Name Role Phone Kamila Olmedo MD Unavailable [phone] Wild Lopez MD Unavailable [phone] Karolina Ramesh PRISON GUARD Primary Care Provider + [phone] Sidney Ho MD Unavailable [phone] Emery Price MD Unavailable Unavailable Reuben Sanchez MD Unavailable Unavailable Dawson Webber APRN Unavailable [phone] Encounter Details Date Type Department Care Team (Late st Contact Info) Description 02/13/2021 [employer] Message [facility] [address] [place] [phone] Dawson Webber, LOG TURNER [address] [place] [address] RE: Question Social History Tobacco Use Types Packs/Day Years Used Date Smoking Tobacco: Former Cigarettes 0 0 11/09/2010 - 11/09/2010 Smokeless Tobacco: Never Alcohol Use Standard Drinks/Week Comments Yes 0 (1 standard drink = 0.6 oz pur e alcohol) occasional Sex and Gender Information Value Date Recorded Sex Assigned at Male 01/22/2025 3:12 AM CDT Legal Sex Male 11:13 PM ASSIGNMENT EDITOR Gender Identity Male 01/22/2025 3:12 AM CDT [...] documented as of this encounter Care Teams Test Lab Technician Relationship Specialty Start Date End Date Karolina Ramesh FNP [address] [place] [facility] [place] [address] PCP - General NURSE PRACTITIONER 11/28/17 Kamila Olmedo MD [address] [place] [facility] [place] [address] CARDIOVASCULAR DISEASE 08/22/16 Wild Lopez MD [facility] [address] [place] [address] CARDIOVASCULAR DISEASE 10/25/16 Sidney Ho MD [address] [place] [address] ORTHOPAEDIC SURGERY 03/20/18 Emery Price MD [address] [place] [address] THORACIC DISEASES 12/05/18 Reuben Sanchez MD [address] [place] [address] VASCULAR SURGERY 04/15/19 Dawson Webber APRN [address] [place] [address] Nurse Practitioner NURSE PRACTITIONER 08/25/22 documented as of this encounter
--- OUTSIDE RECORDS SUMMARY | 2025-01-24 08:08 | XMS_ITS | Clinical Summary ---
Author Organization [facility] Address [address] [place] [address] Care Team Providers Care Supervisor Dry Cell Assembly Name Role Phone Karolina Ramesh APRN-FRUIT BUYING GRADER Unavailable [phone] Nicolas Martinez MD Unavailable [phone] Karolina Ramesh ASSET PROTECTION ASSISTANT-FRUIT BUYING GRADER Primary Care Provider Source Comments [facility],non-owned Affiliates and Associated Physician Practices is amultiple site organization consisting of ambulatory clinics and hospital sitesin [place], [place], [place] and [place]. This disclosure is being madepursuant to the Care Everywhere program and may not contain all information available regarding this patient. 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, with which he had symptoms of fatigue, now s/p recent admission for Ann valve replacement who presented to [facility] with chest pain, shortness of breath, and [...] PNA Assessment & Plan (07/24/2019 11:21 AM [employer]): Pericardial effusion Assessment: Chacha Oneill is a 38 year old male with history of anxiety and bicuspid aortic valve 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, with which he had symptoms of fatigue, now s/p recent admission for Ann valve replacement who presented to [facility] with chest pain, shortness of breath, and [...] anxiety 2 mg q6 Currently on dilaudid OIL WELL DRILLING MANAGER per pain team recommendations Tylenol 650 mg q6- 8 doses Toradol 30 mg IV- 4 doses FENGI: Diet regular Colace for bowel regimen while on pain management CaC03 for hypocalcemia Assessment & Plan (07/23/2019 11:49 AM [employer]): Assessment: Chacha Oneill is a 38 year old male with history of anxiety and bicuspid aortic valve 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 He was extubated, started on OIL WELL DRILLING MANAGER for pain control. Telemetry remained stable. He was transferred to Cardiology service for further care. Plan: - Transfer to Cardiology, Dr. Alberto - Diet: regular - Daily colace, tums (started for low calcium) - Continue home lisinopril 20mg daily - Increase metoprolol from 75mg to 100mg daily - Lasix 20mg BID - Start aspirin 325mg daily for ann valve prophylaxis - Dilaudid OIL WELL DRILLING MANAGER: basal 0.75mg/hr, push 0.3mg, lockout 10 min, hourly max 1.95mg --> wean as tolerated - Toradol 30mg IV q6h x4 doses - Tylenol 650mg q6h x8 doses - Ativan 2mg q6h for anxiety - CR monitors, continuous pulse ox - Incentive spirometry - Nicotine patch - I/O's - VS q4h Assessment & Plan (07/21/2019 12:43 PM [employer]): Pericardial effusion Assessment: Chacha Oneill is a 38 year old male with history of anxiety and bicuspid aortic valve 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 Assessment & Plan (07/20/2019 3:31 PM [employer]): Assessment: Chacha Oneill is a 38 year [...] AM. 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, with which he had symptoms of fatigue, now s/p recent admission for Ann valve replacement who presented to [facility] with chest pain, shortness of breath, and [...] course Assessment & Plan (07/19/2019 11:53 AM [employer]): Assessment: Chacha Oneill is a 38 year old male with history of anxiety and bicuspid aortic valve 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, with which he had symptoms of fatigue, now s/p recent admission for Ann valve replacement who presented to [facility] with chest pain, shortness of breath, and [...] [place]) Assessment & Plan (07/25/2019 2:22 PM [employer]): Chacha Oneill is a 38 year old [...] home later today with BMP tomorrow at [facility], follow ups made, spoke at length with Chacha and his girlfriend regarding new medications, signs to return and follow ups Assessment & Plan (07/24/2019 3:09 PM [employer]): Chacha Oneill is a 38 year old [...] - pain team involved; transitioned off morphine OIL WELL DRILLING MANAGER with adequate pain control; continues home anxiety meds (Ativan in place of Xanax while in hospital) Assessment & Plan (07/23/2019 11:56 AM [employer]): Chacha Oneill is a 38 year old [...] hospital) Assessment & Plan (07/22/2019 5:15 PM [employer]): Chacha Oneill is a 38 year old [...] hospital) Assessment & Plan (07/17/2019 4:56 PM [employer]): Assessment: Chacha Oneill is a 38 year [...] Plan for d/c today, follow-up with primary tongsman scheduled on 08/08. Reviewed echo and CXR with Dr. Cheung, pericardial effusion not increased, stable for d/c today. Assessment & Plan (07/16/2019 11:25 AM [employer]): Assessment: Chacha Oneill is a 38 year [...] repair Assessment & Plan (07/17/2019 3:01 PM [employer]): Assessment: Chacha Oneill is a 38 year [...] time). Assessment & Plan (07/16/2019 9:50 AM [employer]): Assessment: Chacha Oneill is a 38 year [...] time). Assessment & Plan (07/15/2019 11:59 AM [employer]): Assessment: Chacha Oneill is a 38 year [...] Type Department Care Team Description 12/04/2024 Telephone [facility] Heart & Vascular Care [address] [place] [address] [address] [place] [address] Nicolas Martinez MD Record Request 11/25/2024 12:29 PM CDT - 11/25/2024 11:59 PM CDT Hospital Encounter [facility] Imaging Services - CT Scan [address] [facility], [address] [place] [address] Nicolas Martinez MD Discharge Disposition: Home or Self Care 11/25/2024 Results Follow-Up [facility] [address] [place] [address] [address] [place] [address] Nicolas Martinez MD 11/11/2024 Telephone [facility] Vascular Care [address] [facility] [address] [place] [id number] Jorge Gill MD Follow-up 11/04/2024 Travel 10/29/2024 Telephone [facility] Care [facility] [facility] [address] [place] [address] Nicolas Martinez MD Forms/questionnaires from Last 3 [...] on file Legal Sex Male 5:35 AM [employer] Gender Identity Not on file Sexual Orientation [...] Oxygen Concentration 100% 07/23/2019 4 :00 PM [employer] Weight 90.1 kg (198 lb 9.6 oz) 10/14/2024 9:25 A M CDT Height 177.8 cm (5' 10) 01/23/2024 2:44 PM CDT Body Mass Index 28.5 01/23/2024 2:44 PM CDT Plan of Treatment Upcoming Encounters Date Type Department Care Team (Late st Contact Info) Description 03/18/2025 9:45 AM CDT Appointment [facility] Heart & Vascular Care [facility] [facility], [address] [place] [address] 03/18/2025 10:30 AM CDT Office Visit [facility] Health Heart & Vascular Care [address] [facility] [address] [place] [address] Nicolas Martinez MD [address] [facility] [address] [place] [id number] Health Maintenance Due Date Last Done Comments [...] (CALCIUM TOTAL) AM Draw 07/25/2019 5:32 AM [employer] from Last 3 Months or Most Recently [...] CONTRAST Exam Date: 11/25/2024 1:10 PM Location: [facility] CT Chest with IV contrast INDICATION:I71.21: [...] to an exam from July 2019 from [facility]. There are mild degenerative changes of the [...] CONTRAST Exam Date: 11/25/2024 1:10 PM Location: [facility] CT Chest with IV contrast INDICATION:I71.21: [...] [facility] There are mild degenerative changes of the [...] - 1.20 mg/dL 11/25/2024 12:58 PM CDT [facility] eGFR >90 >=90 mL/min/1.7 3 m2 11/25/2024 12:58 PM CDT [facility] Blood BLOOD SPECIMEN / Unknown 11/25/2024 12:37 PM CDT 11/25/2024 12:58 PM CDT us Nicolas Martinez MD LAB - POINT OF CARE ORDERABLES Final Result [facility] [address] [place] [address] * (ABNORMAL) BASIC METABOLIC PANEL (CALCIUM TOTAL) (07/25/2019 5:32 AM [facility]) [facility] Glucose 107(H) 70 - 105 mg/dL 07/25/2019 6:23 AM [facility] Sodium 137 136 - 145 mmol/L 07/25/2019 6:23 AM [facility] Potassium 3.0(L) 3.5 - 5.1 mmol/L 07/25/2019 6:23 AM [facility] Chloride 98 98 - 107 mmol/L 07/25/2019 6:23 AM [facility] CO2 29 22 - 29 mmol/L 07/25/2019 6:23 AM [facility] Calcium 8.51(L) 9.08 - 10.48 mg/dL 07/25/2019 6:23 AM [facility] Anion Gap 10 5 - 20 mmol/L 07/25/2019 6:23 AM [facility] BUN 11.2 5.3 - 18.7 mg/dL 07/25/2019 6:23 AM [facility] Creatinine 0.84 0.61 - 1.07 mg/dL 07/25/2019 6:23 AM [facility] eGFR by MDRD >60 >60 mL/min/1.7 3m2 07/25/2019 6:23 AM [facility] eGFR by MDRD >60 >60 mL/min/1.7 3m2 07/25/2019 6:23 AM [facility] Blood BLOOD SPECIMEN / Unknown Lab Venipuncture / Unknown 07/25/2019 5:32 AM [employer] 07/25/2019 5:45 AM [facility] us Rima Traore MD LAB - CHEMISTRY ORDERABLES Final Result [facility] [address] [place] [address] from Last 3 Months or Most Recently Relevant to Health Maintenance Insurance [facility] [place]ID [place] Advance Directives Documents on File Type Date Recorded Patient Mannequin Maker Expl anation Adv Directive/Living Will/POA 07/28/2019 9:05 PM POA * Full Code (Latest Code Status on File) Date Activated Date Inactivated Comments 07/19/2019 3:45 AM 07/25/2019 6:34 PM * Full Code Date Activated Date Inactivated Comments 07/14/2019 6:49 PM 07/17/2019 4:04 PM Care Teams Supervisor Dry Cell Assembly Relationship Specialty Start Date End Date Karolina Ramesh APRN-CNP [address] [place] [phone] PCP - General Nurse Practitioner Family 05/12/24 Karolina Ramesh APRN-FRUIT BUYING GRADER [address] [place] [address] [place] [address] 04/16/19 Nicolas Martinez MD [address] [place] [phone] Paving Supervisor Cardiology 04/30/19
--- OUTSIDE RECORDS SUMMARY | 2025-01-24 08:08 | XMS_ITS | Clinical Summary ---
Author Organization [facility] Address [address] [place] [address] Care Team Providers Care Angle Dozer Operator Name Role Phone Kamila Olmedo MD Unavailable [phone] Wild Lopez MD Unavailable [phone] Karolina Ramesh CITY PLANT SUPERVISOR Primary Care Provider [phone] Sidney Ho MD Unavailable [phone] Emery Price MD Unavailable Unavailable Reuben Sanchez MD Unavailable Unavailable Dawson Webber STUDIO OPERATION ENGINEER Unavailable [phone] Allergies Active Allergy Reactions Criticality Noted Date [...] for Ann valve replacement who presented to [facility] with chest pain, shortness of breath, and [...] evidence of PNA 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 Bicuspid aortic valve [...] Tylenol PRN mild pain or fever - Hominy 5/325mg PO PRN severe pain - Reassess later this morning Dilated aortic root 10/20/2016 H/O Ross procedure 09/05/2016 History of endocarditis in adulthood 09/05/2016 Bicuspid aortic valve ([facility]) 07/16/2004 VSD (ventricular septal defect) ([facility]) Endocarditis of aortic valve Endocarditis Overview (09/05/2016): [...] CDT - 01/22/2025 3:17 AM CDT Emergency [facility] [address] [place] [address] Bakari Mckeon MD Urinary Symptoms Discharge Disposition: [...] AM CDT Legal Sex Male 11:13 PM DUCT LAYER HELPER Gender Identity Male 01/22/2025 3:12 AM CDT [...] (U) DARK YELLOW 01/22/2025 2:59 AM CDT [facility] TRANSPARENCY CLOUDY 01/22/2025 2:59 AM CDT [facility] SPECIFIC GRAVITY (U) 1.030(H) 1.000 - 1.025 01/22/2025 2:59 AM CDT [facility] Comment:EQUAL TO OR GREATER THAN U PH 6.0 5.0 - 8.0 01/22/2025 2:59 AM CDT [facility] LEUKOCYTES (U) NEGATIVE NEGATIVE 01/22/2025 2:59 AM CDT [facility] NITRITES NEGATIVE NEGATIVE 01/22/2025 2:59 AM CDT [facility] PROTEIN RANDOM (U) 3+(A) NEGATIVE 01/22/2025 2:59 AM CDT [facility] GLUCOSE (U) NEGATIVE NEGATIVE 01/22/2025 2:59 AM CDT [facility] KETONES MG/DL (U) NEGATIVE NEGATIVE 01/22/2025 2:59 AM CDT [facility] UROBILINOGEN 1.0(H) <1.0 EU/DL 01/22/2025 2:59 AM CDT [facility] BILIRUBIN (U) NEGATIVE NEGATIVE 01/22/2025 2:59 AM CDT [facility] BLOOD (U) 3+(A) NEGATIVE 01/22/2025 2:59 AM CDT [facility] WBC/HPF 0-5 0 - 5 /HPF 01/22/2025 2:59 AM CDT [facility] RBC/HPF 50-100(A) 0 - 5 /HPF 01/22/2025 2:59 AM CDT [facility] EPI/LPF OCCASIONAL /LPF 01/22/2025 2:59 AM CDT [facility] BACTERIA (U) 2+ /HPF 01/22/2025 2:59 AM CDT [facility] MUCUS PRESENT 01/22/2025 2:59 AM CDT [facility] CRYSTALS (U) CA OXALATE 01/22/2025 2:59 AM CDT [facility] Comment:PRESENT URINE SPECIMEN OBTAINED BY CLEAN CATCH PROCEDURE / Unknown 01/22/2025 2:43 AM CDT us Bakari Mckeon MD URINE ORDERABLES Final Result [facility] [address] [place] [address], * CT ABD+PEL WO CON (01/22/2025 1:38 [...] 1:52 AM Narrative 01/22/2025 1:52 AM CDT [place] [id number] [place] [address] EXAM: CT ABD+PEL WO CON INDICATION: Flank [...] Procedure Note Hua Aguilar MD - 01/22/2025 [facility] [address] [place] [address] EXAM: CT ABD+PEL WO CON INDICATION: Flank [...] - 145 MMOL/L 01/22/2025 1:49 AM CDT [facility] POTASSIUM S/P/B 3.5 3.5 - 5.1 MMOL/L 01/22/2025 1:49 AM CDT [facility] CHLORIDE S/P/B 105 98 - 107 MMOL/L 01/22/2025 1:49 AM CDT [facility] CO2 24.9 21.0 - 32.0 MMOL/L 01/22/2025 1:49 AM CDT [facility] GLUCOSE 95 70 - 99 MG/DL 01/22/2025 1:49 AM CDT [facility] Comment: FASTING GLUCOSE 100 TO 125 MG/DL IS CONSISTENT WITH IMPAIRED FASTING GLUCOSE. FASTING GLUCOSE >125 MG/DL IS CONSISTENT WITH DIABETES. RANDOM GLUCOSE >200 MG/DL WITH HYPERGLYCEMIC SYMPTOMS IS CONSISTENT WITH DIABETES. PER ADA GUIDELINES BUN 12 6 - 24 MG/DL 01/22/2025 1:49 AM CDT [facility] CREATININE S/P/B 1.19 0.70 - 1.30 MG/DL 01/22/2025 1:49 AM CDT [facility] CALCIUM S/P/B 9.3 8.4 - 10.5 MG/DL 01/22/2025 1:49 AM CDT [facility] BILIRUBIN TOTAL S/P/B 0.3 0.2 - 1.0 MG/DL 01/22/2025 1:49 AM CDT [facility] Comment: THIS ASSAY IS NOT RECOMMENDED FOR PATIENTS UNDERGOING TREATMENT WITH ELTROMBOPAG DUE TO THE POTENTIAL FOR FALSELY ELEVATED RESULTS. ALKALINE PHOSPHATASE S/P/B 112 45 - 115 U/L 01/22/2025 1:49 AM CDT [facility] AST 14(L) 15 - 37 U/L 01/22/2025 1:49 AM CDT [facility] ALT 19 16 - 63 U/L 01/22/2025 1:49 AM CDT [facility] TOTAL PROTEIN S/P/B 7.8 6.4 - 8.2 G/DL 01/22/2025 1:49 AM CDT [facility] ALBUMIN S/P/B 3.9 3.4 - 5.0 G/DL 01/22/2025 1:49 AM CDT [facility] ANION GAP 12.1 5.0 - 15.0 MMOL/L 01/22/2025 1:49 AM CDT [facility] OSMOLALITY (CALC) 294 MOSM/KG 025 1:49 AM CDT [facility] Comment:REFERENCE RANGE NOT ESTABLISHED GFR ESTIMATE 78(L) >89 ML/MIN/1. 73 M2 01/22/2025 1:49 AM CDT [facility] GFR NOTES GFR REFERENCE S: 01/22/2025 1:49 AM CDT [facility] Comment: THE ESTIMATED GFR IS CALCULATED [...] us Bakari Mckeon MD LABORATORY Final Result [facility] [address] [place] [address], * (ABNORMAL) CBC W/DIFF AUTOMATED (01/22/2025 1:24 AM CDT) WBC 11.89(H) 4.00 - 10.80 x10'3/uL 01/22/2025 1:42 AM CDT [facility] RBC 5.76 4.50 - 6.10 x10'6/uL 01/22/2025 1:42 AM CDT [facility] HGB 16.5 13.0 - 18.0 G/DL 01/22/2025 1:42 AM CDT [facility] HCT 47.6 37.0 - 52.0 % 01/22/2025 1:42 AM CDT [facility] MCV 82.6 78.0 - 100.0 FL 01/22/2025 1:42 AM CDT [facility] MCH 28.6 27.0 - 31.0 PG 01/22/2025 1:42 AM CDT [facility] MCHC 34.7 33.0 - 36.0 G/DL 01/22/2025 1:42 AM CDT [facility] RDW 13.3 11.5 - 14.5 % 01/22/2025 1:42 AM CDT [facility] PLT 282 150 - 350 x10'3/uL 01/22/2025 1:42 AM CDT [facility] MPV 10.2 7.4 - 10.4 FL 01/22/2025 1:42 AM CDT [facility] CBC COMMENT NORMAL REFERENCE RANGE NOT ESTABLISHED FOR THE PROPORTIONAL LEUKOCYTE DIFFERENTIAL. 01/22/2025 1:42 AM CDT [facility] SEG NEUTROPHILS 47 % 1:54 AM CDT [facility] LYMPHOCYTES 43 % 01/22/2025 1:54 AM CDT [facility] MONOCYTES 9 % 01/22/2025 1:54 AM CDT [facility] EOSINOPHILS 1 % 01/22/2025 1:54 AM CDT [facility] ABS SEGMENTED NEUTS 5.59 1.60 - 8.30 x10'3/uL 01/22/2025 1:54 AM CDT [facility] ABS. LYMPHOCYTES 5.11(H) 0.80 - 4.70 x10'3/uL 01/22/2025 1:54 AM CDT [facility] ABS. MONOCYTES 1.07 0.10 - 1.50 x10'3/uL 01/22/2025 1:54 AM CDT [facility] ABS. EOSINOPHILS 0.12 0.00 - 0.40 x10'3/uL 01/22/2025 1:54 AM CDT [facility] PLT MORPH. NORMAL 01/22/2025 1:54 AM CDT [facility] RBC MORPHOLOGY NORMAL 01/22/2025 1:54 AM CDT [facility] WBC MORPHOLOGY ATYPICAL LYMPHS 01/22 1:54 AM CDT [facility] 01/22/2025 1:24 AM CDT us Bakari Mckeon MD LABORATORY Final Result Performing Organization Address City/State/[facility] Co de Phone Number [facility] [address] [place] [address], from Last 3 Months Insurance Advance Directives Documents on File Type Date Recorded Patient Rn Chronic Expl anation Power of Client Relationship Manager 08/25/2022 8:52 AM ALTAGRACIA Nolan-Healthcare agent; Legal [...] [place] (PO) Healthcare Agent Health Care Agent [phone] (Mobile ) Care Teams Angle Dozer Operator Relationship Specialty Start Date End Date Karolina Ramesh FNP [address] [place] [address] PCP - General NURSE PRACTITIONER 11/28/17 Kamila Olmedo MD [address] [place], [place] [id number] CARDIOVASCULAR DISEASE 08/22/16 Wild Lopez MD [address] [facility] [address] [place] [address] CARDIOVASCULAR DISEASE 10/25/16 Sidney Ho MD [address] [id number] ORTHOPAEDIC SURGERY 03/20/18 Emery Price MD [address] [place] [address] THORACIC DISEASES 12/05/18 Reuben Sanchez MD [address] [place] [address] VASCULAR SURGERY 04/15/19 Dawson Webber APRN [address] [place] [address] Nurse Practitioner NURSE PRACTITIONER 08/25/22
[2025-01-24 08:46] LABS: Add Urine Microscopic? YES; Appearance Urine Sl Cloudy (Clear); Glucose Urine UA Negative (Negative); Hematocrit 45.7 % (40.0-54.0); Hemoglobin 15.5 g/dL (14.0-18.0); Immature Granulocyte Percent A 0.5 % (0.0-0.0); Leukocyte Esterase Ur Negative LEU/UL (Negative); Lymphocytes Absolute Auto 2.42 K/mm3 (1.10-4.50); Mean Corpuscular HGB Conc 33.9 g/dL (32-36); Mean Corpuscular Hemoglobin 28.4 pg (27.0-31.0); Mean Corpuscular Volume 83.7 fL (78.0-102.0); Nitrate Urine Negative (Negative); Nucleated Red Blood Cells Absolute Auto 0.00 K/mm3 (0.00-0.00); Nucleated Red Blood Cells Perc 0.0 % (0-0.0); Platelet Count Result 221 K/mm3 (150-420); Red Blood Count 5.46 M/mm3 (4.70-6.10); Specific Grav Ur 1.025 (1.010-1.020); White Blood Count 11.0 K/mm3 (4.8-10.8)
[2025-01-24 08:55] VITALS: BP 123/75; PULSE 82; RESP 14; TEMP 36.3; O2SAT 96
[2025-01-24 08:57] LABS: Alanine Aminotransferase 19 U/L (6-50); Albumin Level 3.7 g/dL (3.5-5.1); Alkaline Phosphatase 83 U/L (38-126); Anion Gap 4 mmol/L (4-12); Aspartate Amino Transferase 22 U/L (17-59); Bilirubin,Total 0.4 mg/dL (0.2-1.3); Blood Urea Nitrogen 7 mg/dL (9-20); Calcium 8.3 mg/dL (8.4-10.2); Carbon Dioxide 31 mmol/L (22-30); Chloride 102 mmol/L (98-107); Estimated CRCL calculation 85 ml/min; Estimated Glomerular Filt Rate > 60; Glucose 82 mg/dL (65-110); Osmolality Calculated 281 mOsm/kg (285-295); Potassium 3.0 mmol/L (3.4-5.0); Sodium 137 mmol/L (137-145); Total Protein 6.8 g/dL (6.3-8.2)
[2025-01-24] MEDS: NITROFURANTOIN MONOHYD MACROCR 100 MG CAP PO (09:20)
[2025-01-24] MEDS: POTASSIUM BICARBONATE 25 MEQ TABEF 50 MEQ PO (09:20)
[2025-01-24 09:30] VITALS: BP 128/70; PULSE 71; RESP 14; TEMP 36.9; O2SAT 97
--- NOTE | 2025-01-27 12:28 | PC.NURSE ---
Preliminary blood culture report; no growth in 24 hours.
--- NOTE | 2025-01-28 13:14 | PC.NURSE ---
preliminary blood cultures x2 reviewed. no growth to date
--- NOTE | 2025-01-31 12:08 | PC.NURSE ---
Final blood culture report; no growth in 5 days.
--- NOTE | 2025-02-02 15:45 | PC.NURSE ---
final blood culture results: no growth after 5 days
== END 2025-01-24 09:30 | disposition home or self-care (01) ==
PROVIDERS: Emergency Provider Emergency Medicine; Referring Provider Internal Medicine
DX: N39.0 Urinary tract infection, site not specified (principal); E87.6 Hypokalemia; N21.8 Other lower urinary tract calculus; I10 Essential (primary) hypertension; F17.200 Nicotine dependence, unspecified, uncomplicated
CPT/HCPCS: 36415; 74176; 80053; 81001; 83605; 85025; 96361; 96374; 96375; 99284; A9270; J1885; J2405; J7030